=== PATIENT | male | born 1995 | race Caucasian/White ===

== ENCOUNTER 2020-12-20 17:59 | Observation (INO) | payer BC, OTHER, SELFPAY ==
[2020-12-20] MEDS ORDERED: Ondansetron PF 4 MG/2 ML Vial ONE (18:17)
[2020-12-20] MEDS ORDERED: Morphine 4 MG/ML VIAL ONE ×2 (18:17→19:33)
[2020-12-20 18:50] LABS: #Basophils 0.1 thou/uL (0.0-0.2); #Eosinphils 0.2 thou/uL (0.0-0.7); #Lymphocytes 1.9 thou/uL (1.20-3.40); #Monocytes 0.7 thou/uL (0.11-0.59); #Neutrophils 8.2 thou/uL (1.40-6.50); %Basophils 0.6 % (0.0-1.0); %Eosinophils 2.2 % (0.0-10.0); %Monocytes 6.2 % (0.0-10.0); %Neutrophils 74.1 % (42.0-75.0); Hemoglobin 16.5 g/dL (14.0-18.0); Mean Corpuscular HGB CONC 34.7 g/dL (32.0-36.0); Mean Corpuscular Hemoglobin 31.2 pg (27.0-31.0); Mean Corpuscular Volume 89.9 fL (78.0-98.0); Platelet Count 331 thou/uL (130-400); RBC Distribution Width 11.7 % (11.5-14.5); White Blood Cell (WBC) Count 11.1 thou/uL (4.8-10.8)
[2020-12-20 18:51] LABS: Bacteria/HPF None Seen HPF (None Seen); Bilirubin Negative (Negative); Blood, Urine Negative (Negative); Clarity Clear (Clear); Glucose, Urine (Dipstick) 30 mg/dL (Negative); Ketone, Urine Negative (Negative); Leukocyte Negative Leu/uL (Negative); Nitrite Negative (Negative); Protein, Urine (Dipstick) 30 mg/dL (Neg-Trace); RBC/HPF 0-3 HPF (0-3); Specific Gravity, Urine 1.032 (1.002-1.036); Squamous Epithelial None Seen HPF (0-3); WBC/HPF 0-3 HPF (0-3)
[2020-12-20 19:11] LABS: ALT (SGPT) 109 U/L (8-55); AST (SGOT) 49 U/L (5-34); Albumin 4.9 g/dL (3.5-5.0); Alkaline Phosphatase 74 U/L (40-110); Anion Gap 13 mmol/L (10-20); BUN (Urea Nitrogen) 11 mg/dL (8.9-20.6); Bilirubin, Total 1.3 mg/dL (0.2-1.2); Calc. Creatinine Clearance 0 mL/min (70-130); Carbon Dioxide 23 mmol/L (22-29); Chloride 105 mmol/L (98-107); Globulin 3.2 g/dL (2.4-3.5); Glucose 126 mg/dL (70-105); Lipase 15 U/L (8-78); Potassium 4.3 mmol/L (3.5-5.1); Protein, Total 8.1 g/dL (6.0-8.3); Sodium 137 mmol/L (136-145)
[2020-12-20] MEDS ORDERED: metroNIDAZOLE 500 MG/100 ML BAG ONE (21:06)
[2020-12-20] MEDS ORDERED: Ondansetron ODT 4 MG TAB SL PRN (22:30)
[2020-12-20] MEDS ORDERED: Sodium Chloride 0.9% 1,000 ML IV SCH (22:30)
[2020-12-20] MEDS ORDERED: Ondansetron PF 4 MG/2 ML Vial IVP PRN (22:30)
[2020-12-20] MEDS: Morphine 4 MG/ML VIAL SLOW IVP PRN (23:16)
[2020-12-20] MEDS: metroNIDAZOLE 500 MG in Premix Bag 1 BAG IVPB SCH (23:17)
[2020-12-21] MEDS: Morphine 4 MG/ML VIAL SLOW IVP PRN ×2 (03:59→20:10)
[2020-12-21 04:02] VITALS: BMI 32.5
[2020-12-21] MEDS: metroNIDAZOLE 500 MG in Premix Bag 1 BAG IVPB SCH ×3 (06:19→18:07)
[2020-12-21 07:32] LABS: SARS-CoV-2 NAA Rapid Test Not Detected (NotDetected)
[2020-12-21] MEDS ORDERED: Lidocaine 1% PF 5 ML VIAL ONE (11:42)
[2020-12-21] MEDS ORDERED: Dexamethasone 20 MG/5 ML VIAL ONE (11:42)
[2020-12-21] MEDS ORDERED: PROPOFOL 200 MG/20 ML VIAL ONE (11:42)
[2020-12-21] MEDS ORDERED: Ondansetron PF 4 MG/2 ML Vial ONE (11:42)
[2020-12-21] MEDS ORDERED: Glycopyrrolate 0.2 MG/ML 5 ML SYRINGE ONE (11:42)
[2020-12-21] MEDS ORDERED: Succinylcholine 200 MG/10 ml SYRINGE FS ONE (11:42)
[2020-12-21] MEDS ORDERED: PHENYLEPHRINE-NS 100 MCG/ML 10 ML SYRINGE ONE (11:42)
[2020-12-21] MEDS ORDERED: Ketorolac Tromethamine 30 MG/ML VIAL ONE (11:42)
[2020-12-21] MEDS ORDERED: Rocuronium Bromide 10 MG/ML (10ML VIAL) ONE (11:42)
[2020-12-21] MEDS ORDERED: Bupivacaine 0.25% HCL 30 ML VIAL ONE (11:43)
[2020-12-21] MEDS ORDERED: Iothalamate Meglumine 60% 50 ML VIAL FS ONE (11:43)
[2020-12-21] MEDS ORDERED: Lidocaine 1% w/Epinephrine 1:100K 20 ML VIAL ONE (11:43)
[2020-12-21] MEDS ORDERED: metroNIDAZOLE 500 MG/100 ML BAG ONE (11:53)
[2020-12-21] MEDS ORDERED: Fentanyl 100 MCG/2 ML VIAL ONE ×2 (11:56→14:33)
[2020-12-21] MEDS ORDERED: Midazolam HCl 2 mg/2 ml Vial ONE (11:56)
[2020-12-21] MEDS ORDERED: Promethazine HCl 25 MG/ML VIAL IM PRN (14:24)
[2020-12-21] MEDS ORDERED: Ondansetron HCl/PF 4 MG/2 ML Vial IVP PRN (14:24)
[2020-12-21] MEDS ORDERED: Promethazine HCl 25 MG/ML VIAL IVPB PRN (14:24)
[2020-12-21 15:45] LABS: #Lymphocytes 0.4 thou/uL (1.20-3.40); #Monocytes 0.4 thou/uL (0.11-0.59); #Neutrophils 9.3 thou/uL (1.40-6.50); %Basophils 0.1 % (0.0-1.0); %Eosinophils 0.2 % (0.0-10.0); %Lymphocytes 3.9 % (21.0-51.0); %Monocytes 3.9 % (0.0-10.0); %Neutrophils 91.9 % (42.0-75.0); Hemoglobin 15.2 g/dL (14.0-18.0); Mean Corpuscular Hemoglobin 30.9 pg (27.0-31.0); Mean Corpuscular Volume 91.1 fL (78.0-98.0); Platelet Count 264 thou/uL (130-400); RBC Distribution Width 11.7 % (11.5-14.5); Red Blood Cell (RBC) Count 4.92 mill/uL (4.70-6.10); White Blood Cell (WBC) Count 10.1 thou/uL (4.8-10.8)
[2020-12-21 16:20] LABS: ALT (SGPT) 289 U/L (8-55); AST (SGOT) 300 U/L (5-34); Albumin 4.1 g/dL (3.5-5.0); Alkaline Phosphatase 80 U/L (40-110); Anion Gap 11 mmol/L (10-20); BUN (Urea Nitrogen) 8 mg/dL (8.9-20.6); Bilirubin, Total 4.8 mg/dL (0.2-1.2); Calc. Creatinine Clearance 176 mL/min (70-130); Calcium 9.1 mg/dL (7.8-10.44); Carbon Dioxide 24 mmol/L (22-29); Chloride 104 mmol/L (98-107); Globulin 2.7 g/dL (2.4-3.5); Glucose 188 mg/dL (70-105); Potassium 4.2 mmol/L (3.5-5.1); Protein, Total 6.8 g/dL (6.0-8.3); Sodium 135 mmol/L (136-145)
[2020-12-22] MEDS: metroNIDAZOLE 500 MG in Premix Bag 1 BAG IVPB SCH ×4 (01:16→18:54)
[2020-12-22] MEDS: Morphine 4 MG/ML VIAL SLOW IVP PRN ×2 (01:16→07:37)
[2020-12-22 05:44] LABS: #Lymphocytes 0.9 thou/uL (1.20-3.40); #Monocytes 0.9 thou/uL (0.11-0.59); #Neutrophils 9.3 thou/uL (1.40-6.50); %Basophils 0.1 % (0.0-1.0); %Eosinophils 0.2 % (0.0-10.0); %Monocytes 7.7 % (0.0-10.0); Hemoglobin 14.1 g/dL (14.0-18.0); Mean Corpuscular HGB CONC 33.9 g/dL (32.0-36.0); Mean Corpuscular Hemoglobin 31.3 pg (27.0-31.0); Mean Corpuscular Volume 92.1 fL (78.0-98.0); Mean Platelet Volume 6.9 fL (7.4-10.4); Platelet Count 277 thou/uL (130-400); RBC Distribution Width 11.7 % (11.5-14.5); Red Blood Cell (RBC) Count 4.52 mill/uL (4.70-6.10)
[2020-12-22 06:09] LABS: ALT (SGPT) 328 U/L (8-55); AST (SGOT) 233 U/L (5-34); Albumin 3.8 g/dL (3.5-5.0); Alkaline Phosphatase 80 U/L (40-110); Bilirubin, Total 4.4 mg/dL (0.2-1.2); Lipase 13 U/L (8-78); Protein, Total 6.5 g/dL (6.0-8.3)
[2020-12-22] MEDS ORDERED: Fentanyl 100 MCG/2 ML VIAL ONE (07:13)
[2020-12-22] MEDS ORDERED: Iothalamate Meglumine 60% 50 ML VIAL FS ONE (10:15)
[2020-12-22] MEDS ORDERED: Indomethacin 50 MG SUPP ONE ×2 (10:16→10:18)
[2020-12-22] MEDS ORDERED: Rocuronium Bromide 10 MG/ML (10ML VIAL) ONE (10:29)
[2020-12-22] MEDS ORDERED: Lidocaine 1% PF 5 ML VIAL ONE (10:29)
[2020-12-22] MEDS ORDERED: Ketorolac Tromethamine 30 MG/ML VIAL ONE (10:29)
[2020-12-22] MEDS ORDERED: Ondansetron PF 4 MG/2 ML Vial ONE (10:29)
[2020-12-22] MEDS ORDERED: PROPOFOL 200 MG/20 ML VIAL ONE (10:29)
[2020-12-22] MEDS ORDERED: Glycopyrrolate 0.2 MG/ML 5 ML SYRINGE ONE (10:29)
[2020-12-22] MEDS ORDERED: Dexamethasone 20 MG/5 ML VIAL ONE (10:29)
[2020-12-22] MEDS ORDERED: HYDROcodone/Acetaminophen 7.5/325 mg Tablet PO PRN (13:04)
[2020-12-22] MEDS ORDERED: Acetaminophen 325 MG TAB PO PRN (13:05)
[2020-12-22] MEDS ORDERED: Ibuprofen 800 MG TAB PO PRN (13:06)
[2020-12-22] MEDS: HYDROcodone/Acetaminophen 7.5/325 mg Tablet PO PRN (13:47)
[2020-12-22] MEDS: Ondansetron PF 4 MG/2 ML Vial IVP PRN (13:49)
[2020-12-23] MEDS: metroNIDAZOLE 500 MG in Premix Bag 1 BAG IVPB SCH ×2 (00:04→05:09)
[2020-12-23 06:28] LABS: ALT (SGPT) 226 U/L (8-55); AST (SGOT) 76 U/L (5-34); Albumin 3.6 g/dL (3.5-5.0); Alkaline Phosphatase 74 U/L (40-110); Bilirubin, Direct 0.5 mg/dL (0.1-0.3); Bilirubin, Total 0.9 mg/dL (0.2-1.2); Lipase 14 U/L (8-78); Protein, Total 6.4 g/dL (6.0-8.3)
[2020-12-23] MEDS: HYDROcodone/Acetaminophen 7.5/325 mg Tablet PO PRN (10:34)
[2020-12-23] MEDS: Ondansetron PF 4 MG/2 ML Vial IVP PRN (10:39)
[2020-12-23 11:40] VITALS: BP 126/71; TEMP 98.5
== END 2020-12-23 12:39 | disposition home or self-care (01) ==
LOC: ERS 17:59 → SURG A 20:01 → INTOOBSV 20:01 → OBSVTOIN 20:01 → SJJU 12-22 14:52 → SURG A 12-22 14:57
PROVIDERS: ADMIT Surgery; ATTEND Surgery
PROC: 0FT44ZZ Resection of Gallbladder, Percutaneous Endoscopic Approach (ICD-10-PCS; principal; 2020-12-21)
PROC: BF131ZZ Fluoroscopy of Gallbladder and Bile Ducts using Low Osmolar Contrast (ICD-10-PCS; 2020-12-21)
PROC: 0FC98ZZ Extirpation of Matter from Common Bile Duct, Via Natural or Artificial Opening Endoscopic (ICD-10-PCS; 2020-12-22)
DX: K80.65 Calculus of gallbladder and bile duct with chronic cholecystitis with obstruction (principal); F41.9 Anxiety disorder, unspecified; F32.9 Major depressive disorder, single episode, unspecified; K66.0 Peritoneal adhesions (postprocedural) (postinfection); F17.210 Nicotine dependence, cigarettes, uncomplicated; Z20.822 Contact with and (suspected) exposure to COVID-19; Z88.8 Allergy status to other drugs, medicaments and biological substances
CPT/HCPCS: 36415; 47532; 74330; 76705; 80053; 80076; 81003; 81015; 83690; 85014; 85018; 85025; 88304; 96365; 96367; 96375; 96376; G0378; J1100; J1610; J1885; J1956; J2250; J2270; J2405; J2704; J3010; Q9961; S0020; U0002; U0005